=== PATIENT | male | born 1975 | race Hispanic/Latino ===

== ENCOUNTER 2018-05-05 09:52 | Outpatient (CLI) | payer BC | END 2018-05-05 09:53 | disposition home or self-care (01) | LOC: C.RADH 09:52 ==

== ENCOUNTER → 2018-05-07 | Outpatient (CLI) | payer BC | LOC: C.RADH 09:17 | DX: K56.699 Other intestinal obstruction unspecified as to partial versus complete obstruction (principal); K59.00 Constipation, unspecified ==